=== PATIENT | male | born 1985 | race Caucasian/White ===

== ENCOUNTER 2021-05-17 17:31 | Emergency (ER) | payer BC ==
[~2021-05-17 17:31] MED LIST: ASPIRIN CHEWABL81 MG PO
[2021-05-17 18:52] LABS: HEMOGLOBIN 18.5 gm/dl (14.0-17.5); RED BLOOD COUNT 6.04 M/UL (4.20-5.50)
[2021-05-17 19:15] LABS: BUN/CREATININE RATIO 11 (0-10)
== END 2021-05-17 20:30 | disposition home or self-care (01) ==
LOC: ER1 17:31
PROVIDERS: Preventive Medicine Occupational Medicine
DX: R10.9 Unspecified abdominal pain (principal); I10 Essential (primary) hypertension; F41.9 Anxiety disorder, unspecified
CPT/HCPCS: 36415; 71045; 80053; 81001; 82550; 82553; 83690; 83874; 84484; 85025; 85652; 86140; 87086; 96374; 96375; 99284; C9113; J2405; Q9967